=== PATIENT | female | born 1965 | race Caucasian/White ===

== ENCOUNTER 2016-10-13 07:01 | Emergency (ER) | payer BC ==
[2016-10-13] MEDS ORDERED: DUONEB INH ONE (07:43)
[2016-10-13] MEDS ORDERED: PREDNISONE 10 MG TAB ONE (08:27)
[2016-10-13] MEDS ORDERED: PREDNISONE 50 MG TAB ONE (08:27)
== END 2016-10-13 10:16 | disposition home or self-care (01) ==
LOC: ER 07:01
CPT/HCPCS: 71020; 94640

== ENCOUNTER 2016-10-26 10:52 | Emergency (ER) | payer BC ==
[2016-10-26] MEDS ORDERED: OPTIRAY 350 100 ML VIAL HMH IV ONE (10:53)
[2016-10-26] MEDS ORDERED: METHYLPRED SOD SUCC 125 MG/2 ML VIAL ONE (11:30)
[2016-10-26] MEDS ORDERED: NEB-ALBUTEROL 2.5 MG/3 ML INH ONE ×3 (11:37)
== END 2016-10-26 14:40 | disposition home or self-care (01) ==
LOC: ER 10:52
DX: R06.00 Dyspnea, unspecified (principal)
CPT/HCPCS: 36415; 71260; 80053; 82553; 82785; 83880; 84439; 84443; 84484; 85025; 93005; 94640; 96374